=== PATIENT | female | born 1980 | race Caucasian/White ===

== ENCOUNTER 2016-12-28 10:19 | Emergency (ER) | payer OTHER ==
[~2016-12-28] VITALS: Ht 162.6 cm; Wt 60.8 kg
[~2016-12-28 10:19] MED LIST: ADDERALL30 MG PO; XANAX1 MG PO
[2016-12-28 10:51] LABS: EOSINOPHIL (%) 1.4 % (0-5); EOSINOPHIL COUNT 0.1 K/uL (0-0.3); IMMATURE GRANULOCYTE (%) 0.2 % (0.0-0.7); INSTRUMENT ABS NEUTROPHIL CT 2.5 K/uL; MCH 29.3 PG (29.0-34.0); MCHC 32.3 G/DL (30.0-36.0); MCV 90.7 FL (83-99); MEAN PLAT.VOLUME 9.8 uM^3 (9.5-12.4); MONOCYTE (%) 7.2 % (3-12); MONOCYTE COUNT 0.4 K/uL (0-0.8); NEUTROPHIL (%) 49.8 % (45-76); NEUTROPHIL COUNT 2.5 K/uL (1.8-6.4); PLATELET COUNT 185 K/uL (156-360); RBC DIS.WIDTH-CV 13.1 % (11.8-14.6); RBC DIS.WIDTH-SD 43.5 % (39-53)
[2016-12-28 10:58] LABS: CHLORIDE 103 mEq/L (99-109); POTASSIUM 3.5 mEq/L (3.7-5.4); SODIUM 138 mEq/L (136-147)
[2016-12-28 11:01] LABS: GLUCOSE 96 mg/dL (70-99)
[2016-12-28 11:02] LABS: ANION GAP 8 MEQ/L (2-14); TOTAL BILIRUBIN 1.3 mg/dL (0.0-1.0)
[2016-12-28 11:03] LABS: SERUM ETHYL ALCOHOL < 10 mg/dL
[2016-12-28 11:04] LABS: GFR ESTIMATE (CALCULATED) > 59 mL/min/
[2016-12-28 11:05] LABS: ALKALINE PHOSPHATASE 43 IU/L (3-129)
[2016-12-28 11:06] LABS: UREA NITROGEN (BUN) 12 mg/dL (9-23)
[2016-12-28 11:08] LABS: SALICYLATE < 5.0 MG/DL (15-30)
[2016-12-28 11:16] LABS: QUANTITATIVE HCG < 4.0 MIU/ML
[2016-12-28 12:42] VITALS: BP 110/69
[2016-12-29] MEDS ORDERED: SEROQUEL300 MG PO (04:05)
[2016-12-29] MEDS ORDERED: DOXEPIN HCL25 MG PO (04:06)
[2016-12-29] MEDS ORDERED: SUBOXONE 8 MG-1 EAC2 SL (04:06)
[2016-12-29] MEDS ORDERED: SEROQUEL12.5 MG PO (04:44)
== END 2016-12-28 12:45 | disposition home or self-care (01) ==
LOC: EME 10:19
PROVIDERS: Emergency Medicine
DX: F32.9 Major depressive disorder, single episode, unspecified (principal); R45.851 Suicidal ideations; F11.10 Opioid abuse, uncomplicated; F41.9 Anxiety disorder, unspecified; F90.9 Attention-deficit hyperactivity disorder, unspecified type; F17.200 Nicotine dependence, unspecified, uncomplicated; Z88.8 Allergy status to other drugs, medicaments and biological substances; Z59.0 Homelessness
CPT/HCPCS: 80053; 81003; 84702; 85025; 90839; 99281; 99285; G0480

== ENCOUNTER 2016-12-28 23:33 | Inpatient (IN) | payer OTHER ==
[~2016-12-28] VITALS: Ht 162.6 cm; Wt 60.8 kg
[2016-12-29 00:15] LABS: AMPHETAMINE NEGATIVE (500 ng/mL); BARBITURATES NEGATIVE (200 ng/mL); BENZODIAZEPINES NEGATIVE (150 ng/mL); COCAINE NEGATIVE (150 ng/mL); INTERNAL CONTROLS VALID? YES; METHADONE NEGATIVE (200 ng/mL); METHAMPHETAMINE NEGATIVE (500 ng/mL); OPIATES (MORPHINE) NEGATIVE (100 ng/mL); OXYCODONE NEGATIVE (100 ng/mL); PHENCYCLIDINE NEGATIVE (25 ng/mL); PROPOXYPHENE NEGATIVE (300 ng/mL); THC CANNABINOIDS NEGATIVE (50 ng/mL); TRICYCLIC ANTIDEPRESSANTS PRESUMPTIVE POSITIVE (300 ng/mL)
[2016-12-29 00:26] LABS: HEMATOCRIT 36.9 % (36.0-46.0); MCH 29.9 PG (29.0-34.0); MCHC 33.1 G/DL (30.0-36.0); MCV 90.4 FL (83-99); MEAN PLAT.VOLUME 9.8 uM^3 (9.5-12.4); PLATELET COUNT 189 K/uL (156-360); RBC DIS.WIDTH-CV 13.1 % (11.8-14.6); RBC DIS.WIDTH-SD 43.1 % (39-53); RED BLOOD COUNT 4.08 M/uL (3.80-5.20)
[2016-12-29 00:33] LABS: CHLORIDE 104 mEq/L (99-109); POTASSIUM 3.8 mEq/L (3.7-5.4); SODIUM 138 mEq/L (136-147)
[2016-12-29 00:35] LABS: GLUCOSE 134 mg/dL (70-99)
[2016-12-29 00:36] LABS: ANION GAP 8 MEQ/L (2-14)
[2016-12-29 00:38] LABS: SERUM ETHYL ALCOHOL < 10 mg/dL
[2016-12-29 00:39] LABS: GFR ESTIMATE (CALCULATED) > 59 mL/min/; UREA NITROGEN (BUN) 13 mg/dL (9-23)
[2016-12-29 02:08] LABS: QUANTITATIVE HCG < 4.0 MIU/ML
[2016-12-29] MEDS ORDERED: SEROQUEL300 MG PO (04:05)
[2016-12-29] MEDS ORDERED: SUBOXONE 8 MG-1 EAC2 SL (04:06)
[2016-12-29] MEDS ORDERED: DOXEPIN HCL25 MG PO (04:06)
[2016-12-29 04:31] VITALS: BP 127/76
[2016-12-29] MEDS ORDERED: SEROQUEL12.5 MG PO (04:44)
[2016-12-29 05:50] LABS: ADD MIUA? YES; BILIRUBIN NEGATIVE; BLOOD NEGATIVE; COLOR AMBER ((YELLOW)); GLUCOSE (STRIP) NEGATIVE; KETONES 20; LEUKOCYTES SMALL; NITRITE POSITIVE; PROTEIN (STRIP) 30; SPECIFIC GRAVITY 1.028 (1.000-1.030)
[2016-12-29 06:15] LABS: AMORPHOUS URATES CRYSTALS 3+; CRYSTALS PRESENT
[2016-12-29 06:16] LABS: EPITHELIAL CELLS 2+ /HPF
[2016-12-29 06:20] LABS: BACTERIA 3+ /HPF; RED BLOOD CELLS NONE SEEN /HPF (0-5); WHITE BLOOD CELLS 15-20 /HPF (0-5)
[2016-12-29 06:21] LABS: CASTS PRESENT /LPF; HYALINE CASTS 0-5 /LPF; MUCUS 1+ /LPF
[2016-12-29 07:55] VITALS: BP 108/70
[2016-12-29 16:00] VITALS: BP 113/71
[2016-12-30 08:04] VITALS: BP 105/54
[2016-12-30 11:25] LABS: ALKALINE PHOSPHATASE 35 IU/L (3-129); DIRECT BILIRUBIN 0.3 mg/dL (0.0-0.3); TOTAL BILIRUBIN 1.1 MG/DL (0.0-1.0)
[2016-12-30 15:35] VITALS: BP 97/56
[2016-12-31 07:58] VITALS: BP 92/54
[2016-12-31 16:16] VITALS: BP 103/54
[2017-01-01 08:07] VITALS: BP 107/64
[2017-01-01 15:31] VITALS: BP 94/55
[2017-01-02 08:25] VITALS: BP 95/52
[2017-01-02 15:23] VITALS: BP 91/46
[2017-01-03 09:35] VITALS: BP 102/59
[2017-01-03 15:57] VITALS: BP 94/50
[2017-01-04 08:06] VITALS: BP 92/51
[2017-01-04 15:26] VITALS: BP 101/53
[2017-01-05 08:19] VITALS: BP 91/52
[2017-01-05 15:38] VITALS: BP 98/51
[2017-01-06 07:46] VITALS: BP 87/52
[2017-01-06 16:14] VITALS: BP 111/56
[2017-01-07 08:02] VITALS: BP 94/52
[2017-01-07] MEDS ORDERED: AMOXICILLIN500 MG PO (09:46)
[2017-01-07] MEDS ORDERED: CITALOPRAM HBR20 MG PO (09:46)
[2017-01-07] MEDS ORDERED: QUETIAPINE FUM400 MG PO (09:46)
== END 2017-01-07 13:09 | disposition home or self-care (01) | DRG 885 ==
LOC: EME 23:33 → 1WEST 12-29 03:07 → EDOF 12-29 03:07 → 1WEST 12-29 04:22
PROVIDERS: Emergency Medicine; Nurse Practitioner Family
DX: F31.81 Bipolar II disorder (principal); R45.851 Suicidal ideations; R44.0 Auditory hallucinations; F41.9 Anxiety disorder, unspecified; F17.200 Nicotine dependence, unspecified, uncomplicated; F43.25 Adjustment disorder with mixed disturbance of emotions and conduct; F42.8 Other obsessive-compulsive disorder; F11.10 Opioid abuse, uncomplicated; K04.7 Periapical abscess without sinus
CPT/HCPCS: 80048; 80076; 81003; 84702; 85027; 90839; 97150 GO; 97165 GO; 99281; 99285; G0480; J0572; Q0177

== ENCOUNTER 2017-01-18 20:12 | Emergency (ER) | payer OTHER ==
[~2017-01-18] VITALS: Ht 162.6 cm; Wt 60.7 kg
[~2017-01-18 20:12] MED LIST changes: +AMOXICILLIN500 MG PO; +CITALOPRAM HBR20 MG PO; +DOXEPIN HCL25 MG PO; +QUETIAPINE FUM400 MG PO; +SEROQUEL12.5 MG PO; +SEROQUEL300 MG PO; +SUBOXONE 8 MG-1 EAC2 SL
[2017-01-18 21:30] LABS: HEMATOCRIT 36.1 % (36.0-46.0); MCHC 33.5 G/DL (30.0-36.0); MCV 89.6 FL (83-99); MEAN PLAT.VOLUME 9.9 uM^3 (9.5-12.4); PLATELET COUNT 236 K/uL (156-360); RBC DIS.WIDTH-CV 13.1 % (11.8-14.6); RBC DIS.WIDTH-SD 43.1 % (39-53); RED BLOOD COUNT 4.03 M/uL (3.80-5.20); WHITE BLOOD COUNT 7.2 K/uL (4.1-10.2)
[2017-01-18 21:42] LABS: CHLORIDE 105 mEq/L (99-109); POTASSIUM 3.9 mEq/L (3.7-5.4); SODIUM 138 mEq/L (136-147)
[2017-01-18 21:44] LABS: GLUCOSE 91 mg/dL (70-99)
[2017-01-18 21:45] LABS: ANION GAP 8 MEQ/L (2-14)
[2017-01-18 21:47] LABS: GFR ESTIMATE (CALCULATED) > 59 mL/min/; SERUM ETHYL ALCOHOL < 10 mg/dL
[2017-01-18 21:48] LABS: UREA NITROGEN (BUN) 12 mg/dL (9-23)
[2017-01-18 21:56] LABS: QUANTITATIVE HCG < 4.0 MIU/ML
[2017-01-18 21:58] LABS: AMPHETAMINE NEGATIVE (500 ng/mL); BARBITURATES NEGATIVE (200 ng/mL); BENZODIAZEPINES NEGATIVE (150 ng/mL); COCAINE NEGATIVE (150 ng/mL); INTERNAL CONTROLS VALID? YES; METHADONE NEGATIVE (200 ng/mL); METHAMPHETAMINE NEGATIVE (500 ng/mL); OPIATES (MORPHINE) NEGATIVE (100 ng/mL); OXYCODONE NEGATIVE (100 ng/mL); PHENCYCLIDINE NEGATIVE (25 ng/mL); PROPOXYPHENE NEGATIVE (300 ng/mL); THC CANNABINOIDS NEGATIVE (50 ng/mL); TRICYCLIC ANTIDEPRESSANTS PRESUMPTIVE POSITIVE (300 ng/mL)
[2017-01-18 22:12] VITALS: BP 103/78
== END 2017-01-18 22:17 | disposition home or self-care (01) ==
LOC: EME 20:12
PROVIDERS: Emergency Medicine
DX: F31.81 Bipolar II disorder (principal); F11.10 Opioid abuse, uncomplicated; F60.5 Obsessive-compulsive personality disorder; F17.200 Nicotine dependence, unspecified, uncomplicated
CPT/HCPCS: 80048; 84702; 85027; 90839; 99281; 99285; G0480